=== PATIENT | male | born 1955 | race Caucasian/White ===

== ENCOUNTER 2018-02-16 05:40 | Day surgery (SDC) | payer OTHER, BC ==
[~2018-02-16] VITALS: Ht 193 cm; Wt 78.9 kg
[~2018-02-16 05:40] MED LIST: CO Q-10100 MG PO; GLUCOSAMINE1000 MG PO; LIPITOR20 MG PO
[2018-02-16] MEDS ORDERED: CLOTRIMAZOLE-BE15 GM TOP (06:16)
--- NOTE | 2018-02-16 09:20 | NUR ---
02/16/18 0920 Rosita Martínez 0909 PT ARRIVED TO PACU ON 6L VIA MASK, VP [employer] JAW TRUST AND PT REACTIVE TO PAINFUL STIMULI. RESP EVEN AND UNLABORED. 09 PT ABLE TO MAINTAIN OWN AIRWAY. PT REORIENTED TO PACU. 09 APNEA PERIOD NOTED. RN [id number] JAW TRUST AND PT WOKE AND TOOK A DEEP BREATH. 0918 O2 MASK REMOVED, PT REACHING UP AND RUBBING FACE. RN CONTINUES TO REMIND PT TO DEEP BREATHE.
[2018-02-16] MEDS ORDERED: OXYCODON-ACETA1 EAC2 PO (09:30)
[2018-02-16] MEDS ORDERED: IBUPROFEN600 MG PO (09:30)
[2018-02-16] MEDS ORDERED: MAPAP325 MG PO (09:31)
--- NOTE | 2018-02-16 09:59 | NUR ---
[id number]: PT ARRIVES TO DS TREATMENT ROOM FROM PACU AWAKE AND ALERT. RESP EVEN AND UNLABORED. PT DENIES ANY PAIN OR NAUSEA. PT SPOUSE IN ROOM AT BEDSIDE. PT PROVIDED WATER AND CRACKERS. CALL LIGHT AT PT SIDE. 1000: PT PROVIDED COFFEE PER REQUEST.
--- NOTE | 2018-02-16 10:43 | NUR ---
PT TOLERATES PO WELL. PT CONT TO DENY PAIN OR NAUSEA. PT ENCOURAGED TO USE CALL LIGHT WHEN HE FEELS THE URGE TO VOID TO MEET DC CRITERIA TO GO HOME.
--- NOTE | 2018-02-16 10:49 | NUR ---
PT UP TO BR WITH RN ASSIST. PT AMBULATES WELL, STEADY ON FEET. PT DENIES DIZZINESS OR NAUSEA WITH POSITION CHANGE. PT UNABLE TO VOID AT THIS TIME AND STATES, "I JUST WANT TO GO HOME." PT BACK IN BED, DRINKING COFFEE. DC CRITERIA EXPLAINED.
--- NOTE | 2018-02-16 11:38 | NUR ---
1020: PT USES CALL LIGHT TO NOTIFY RN. ON ARRIVAL PT IS COMPLETELY DRESSED AND STATES HE WAS ABLE TO VOID. 100 MLS JACKI COLORED URINE NOTED IN URINAL. DC INSTRUCTIONS GIVEN IN PRESENCE OF PT AND SPOUSE. PT UNABLE TO MAKE FOLLOW UP APPT MADE BY RN, PT INSTRUCTED TO RESCHEDULE WITH DR. CALLE'S OFFICE. PT DC'S FROM DS TREATMENT RM VIA WC WITH VOLUNTEER TO HOME.
== END 2018-02-16 11:35 | disposition home or self-care (01) ==
LOC: DS 05:40
PROVIDERS: Surgery
PROC: 0YU60KZ Supplement Left Inguinal Region with Nonautologous Tissue Substitute, Open Approach (ICD-10-PCS; principal; 2018-02-16 06:45)
DX: K40.90 Unilateral inguinal hernia, without obstruction or gangrene, not specified as recurrent (principal); D17.6 Benign lipomatous neoplasm of spermatic cord; K42.9 Umbilical hernia without obstruction or gangrene; Z88.0 Allergy status to penicillin; Z85.828 Personal history of other malignant neoplasm of skin; Z79.899 Other long term (current) drug therapy
CPT/HCPCS: 00830; C1781; J0690; J1644; J1885; J2405; J2704; J3010; J7120

== ENCOUNTER 2018-02-23 05:50 | Day surgery (SDC) | payer BC ==
--- NOTE | 2018-02-16 11:24 | OR ---
[facility] [place] [facility] [address], [place] [address] Signed DATE OF OPERATION: 02/16/2018 SURGEON: Craig Calle MD PREOPERATIVE DIAGNOSIS: Left inguinal hernia (work-related). POSTOPERATIVE DIAGNOSIS: Left inguinal hernia, work-related both direct and indirect components. PROCEDURES: 1. Repair of left inguinal hernia with implantation of Prolene mesh, underlay technique and high ligation and excision of sac. 2. Excision of cord lipoma. ANESTHESIA: General LMA; Adolph Chávez CRNA and local 20 mL of 0.25% Marcaine with epinephrine. INDICATION: This 62-year-old white man is a patient of Dr. Joel Jorgensen, now in [place], [place] and has developed a left inguinal hernia, which is reducible. 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 He noted the pain in the left groin while getting in and out of his truck and developed a bulge in the area, which worsened over time and has been identified as a reducible left inguinal hernia. He additionally has an umbilical hernia, which is unrelated to work. It has been present for quite a long time and that is not being addressed at this time. He is admitted at this time to undergo repair of left inguinal hernia. He understands the risks of bleeding, infection, recurrence, and other unforeseen complications. We have discussed thoroughly his lifting limitations on the short term to allow for complete healing of the repair. He understands. FINDINGS: Patient has very thin body habitus, but very muscular. He had a small moderate-sized indirect sac without sign of incarcerated viscus and a direct hernia as well. Repair included ligation and excision of the indirect sac, excision of the cord lipoma as well as implantation of Prolene mesh in an underlay technique in the floor of the inguinal canal. Electronically Signed By: CRAIG CALLE MD 02/16/18 1124 PATIENT NAME: CRAIG YBARRA OPERATIVE REPORT DATE OF : 55 REPORT #: [id number] PHYSICIAN: CRAIG CALLE MD PCP: JOEL JORGENSEN DO REPORT IS CONFIDENTIAL AND NOT TO BE RELEASED WITHOUT AUTHORIZATION [facility] [place] [facility] [address], [place] [address] Signed DESCRIPTION OF PROCEDURE: The patient was brought to the operating room, given a general anesthetic by LMA technique. Preoperative antibiotic Ancef was given. Heparin was administered subcutaneously and sequential compression device stockings are used. The lower groin area was clipped and prepared with a chlorhexidine solution and draped sterilely. A very small incision cephalad to the pubic tubercle was made along the line of skin tension. Dissection carried through the very thin subcutaneous tissue. An inferior epigastric vein was ligated and divided. The external oblique was exposed. There was attenuation of the fibers of the external oblique and those thin fibers were incised and the external oblique elevated medially and laterally. An ilioinguinal nerve branch was dissected free from the cremasteric muscle fibers of the cord and reflected around the external oblique medially and protected from harm. The cord was carefully mobilized from the floor and encircled with a Miguel drain. The floor had attenuation consistent with direct hernia. Further dissection in the medial anterior aspect of the cord showed an indirect hernia sac, which was carefully dissected free from the cord completely. Once fully isolated, it was opened and inspected internally. The peritoneal reflection area performed in the neck of the sac was doubly secured with 2-0 silk suture under direct visualization, and redundant hernia sac amputated and passed for pathology. There was a small to moderate size lipoma of the cord, which was excised as well. The attenuated fibers of the fascia of transversalis in the inguinal floor were incised with electrocautery and using blunt dissection, the properitoneal fat was . A small blood vessels that were oozing in the iliopubic track were secured with electrocautery. Once hemostasis was assured, repair was undertaken with Prolene mesh. A segment of Prolene mesh was cut to an elliptical configuration and secured in the upper properitoneal space (underlay technique) with interrupted 2-0 Prolene sutures. A defect was cut in the graft to accommodate the cord structures and the tails of the graft were secured laterally around the cord taking care to avoid encumbrance of the ilioinguinal nerve. A 20 mL of 0.25% Marcaine with epinephrine was injected locally. The cord appeared to be unharmed and the ilioinguinal nerve replaced alongside it. The external oblique was reapproximated with a running 2-0 Vicryl suture. Trixie's layer was reapproximated with interrupted 2-0 Vicryl and skin closed with running subcuticular 3-0 Vicryl. Steri-Strips were applied as was a Mepilex silver sponge dressing and an OpSite. The patient tolerated the procedure well. Blood loss was minimal. Complications none. Electronically Signed By: CRAIG CALLE MD 02/16/18 1124 PATIENT NAME: CRAIG YBARRA OPERATIVE REPORT DATE OF : 55 REPORT #: [id number] PHYSICIAN: CRAIG CALLE MD PCP: JOEL JORGENSEN DO REPORT IS CONFIDENTIAL AND NOT TO BE RELEASED WITHOUT AUTHORIZATION [facility] [place] [facility] [address] [place], [place] [address] Signed MD JESSICA Webster/FELICITA /[id number] cc: Joel Jorgensen DO Copies: JOEL JORGENSEN DO ~ Electronically Signed By: CRAIG CALLE MD 02/16/18 1124 PATIENT NAME: CRAIG YBARRA OPERATIVE REPORT DATE OF : 55 REPORT #: [id number] PHYSICIAN: CRAIG CALLE MD PCP: JOEL JORGENSEN DO REPORT IS CONFIDENTIAL AND NOT TO BE RELEASED WITHOUT AUTHORIZATION
[~2018-02-23] VITALS: Ht 193 cm; Wt 78.9 kg
[~2018-02-23 05:50] MED LIST changes: +CLOTRIMAZOLE-BE15 GM TOP; +IBUPROFEN600 MG PO; +MAPAP325 MG PO; +OXYCODON-ACETA1 EAC2 PO
--- NOTE | 2018-02-23 08:05 | NUR ---
PT IS ALERT, ORIENTED AND SUPPORTED BY HIS . PT HAS RETURNED FOR A SECOND HERNIA SURGERY IN JUST OVER A WEEK. PT IS INFORMED, SEEMED COMFORTABLE. THEY BOTH THANKED ME FOR COMING, EXTENDED A BLESSING. WILL FOLLOW NEEDED
--- NOTE | 2018-02-23 08:32 | NUR ---
02/23/18 0832 Olena Burkett 0851-PATIENT ARRIVED TO PACU ON 6L MASK RR EVEN. PATIENT REACTIVE TO VOICE OPENS EYES DENIES PAIN OR NAUSEA. DRESSING TO UMBILICUS CDI. SR.
[2018-02-23] MEDS ORDERED: OXYCODON-ACETA1 EAC2 PO (08:47)
[2018-02-23] MEDS ORDERED: IBUPROFEN600 MG PO (08:48)
--- NOTE | 2018-02-23 09:51 | NUR ---
0910 PT ARRIVED FROM PACU, AWAKE AND TALKING WITH STAFF. PT DENIES PAIN AND NAUSEA. VITALS STABLE. WATER AND COFFEE GIVEN PER REQUEST. DISCHARGE CRITERIA DISCUSSED. NO FURTHER NEEDS AT THIS TIME. AT BEDSIDE, CALL LIGHT IN REACH.
--- NOTE | 2018-02-23 09:53 | NUR ---
IN TO CHECK ON PT, PT AWAKE. TOLERATING PO WELL. DENIES PAIN AND NAUSEA. PT WOULD LIKE TO DC SOON, CRITERIA DISCUSSED. WATER REFILLD. NO FURTHER NEEDS AT THIS TIME. AT BEDSIDE. CALL LIGHT IN REACH.
--- NOTE | 2018-02-23 15:16 | OR ---
[facility] [address] [place], [place] [address] Signed DATE OF OPERATION: 02/23/2018 SURGEON: Craig Calle MD PREOPERATIVE DIAGNOSIS: Supraumbilical hernia. POSTOPERATIVE DIAGNOSES: 1. Supraumbilical hernia, nonreducible properitoneal fat. 2. Incidentally noted umbilical hernia (small). PROCEDURES: 1. Repair of supraumbilical hernia and umbilical hernia. 2. Implantation of Prolene mesh underlay technique. ANESTHESIA: General and LMA; Craig Be CRNA, and local 20 mL of 0.25% Marcaine with epinephrine. INDICATION: This 62-year-old white man is a patient Dr. Joel Jorgensen in [place], [place]. He does a fair amount of weightlifting and works for [employer] in [employer]. He recently underwent left inguinal hernia repair by me, which was considered work related. He was recovering from that well. He has had longstanding hernia at the umbilical area in the umbilical or supraumbilical, and is now admitted to undergo repair for that. Notably, that hernia is not work related or at least not considered work related by the patient. He is admitted at this time to undergo repair of the supraumbilical hernia, understand the risks of bleeding, infection, recurrence, and other unforeseen complications. He understands this and wished to proceed. FINDINGS: Supraumbilical defect was about 1.5 cm in size and had herniated properitoneal fat, which was incarcerated. There was no hollow viscus incarceration. Additional evaluation showed him to have an umbilical defect as well, which was much smaller about 0.5 cm in size. Both defects were repaired with implantation of Prolene mesh in an underlay technique and with reapproximation of the fascia transversely. DESCRIPTION OF PROCEDURE: The patient was brought to the operating room, given a general anesthetic by LMA technique. Preoperative antibiotic clindamycin was given. The abdomen was clipped and prepared with a chlorhexidine solution and draped sterilely. Evaluation of his left Electronically Signed By: CRAIG CALLE MD 02/23/18 1516 PATIENT NAME: CRAIG YBARRA OPERATIVE REPORT DATE OF : 55 REPORT #: [id number] PHYSICIAN: CRAIG CALLE MD PCP: JOEL JORGENSEN DO REPORT IS CONFIDENTIAL AND NOT TO BE RELEASED WITHOUT AUTHORIZATION [facility] [address] [place], [place] [address] Signed inguinal hernia wound site showed it to be healing well. The palpable mass in the supraumbilical area was noted and an incision was made vertically cephalad to the umbilicus proper. Dissection was carried through the dermis and subcutaneous tissue sharply revealing a herniated segment of properitoneal fat. This was not reducible. The blunt dissection was more fully dissected free and photographs were taken of it. The defect was approximately 1.5 cm in final analysis. The herniated fat was freed from the fascial confines and reduced to the properitoneal space. A blunt dissection undertaken in the properitoneal space circumferentially. Subcutaneous tissue was freed circumferentially as well and extended inferiorly to the umbilicus proper. There was found to be a defect at the umbilicus proper, it is about 0.5 cm in size. The properitoneal dissection in this area showed there to be no sign of herniated viscus. It was deemed most advisable to repair both of the hernia defects in continuity with implantation of Prolene mesh in an underlay technique in the properitoneal space. A segment of mesh was cut to the appropriate configuration and secured in a parachute type technique to the properitoneal space covering both defects fully. The fascia was then reapproximated with interrupted 2-0 Prolene suture as well in a transverse configuration. Both defects were thus completely closed. A 20 mL of 0.25% Marcaine with epinephrine was injected locally. Trixie's layer was reapproximated with interrupted 3-0 Vicryl and skin closed with running subcuticular 3-0 Vicryl. Steri-Strips were applied as was a Mepilex silver sponge dressing and an OpSite. The patient was ultimately extubated and transferred to recovery room in good condition having suffered no complications. Sponge, needle, and instruments counts were reported as correct x3. MD JESSICA Webster/EARLL /[id number] cc: Joel Jorgensen DO Copies: JOEL JORGENSEN DO Electronically Signed By: CRAIG CALLE MD 02/23/18 1516 PATIENT NAME: CRAIG YBARRA OPERATIVE REPORT DATE OF : 55 REPORT #: [id number] PHYSICIAN: CRAIG CALLE MD PCP: JOEL JORGENSEN DO REPORT IS CONFIDENTIAL AND NOT TO BE RELEASED WITHOUT AUTHORIZATION [address] [address] Signed ~ Electronically Signed By: CRAIG CALLE MD 02/23/18 1516 PATIENT NAME: CRAIG YBARRA OPERATIVE REPORT DATE OF : 55 REPORT #: [id number] PHYSICIAN: CRAIG CALLE MD PCP: JOEL JORGENSEN DO REPORT IS CONFIDENTIAL AND NOT TO BE RELEASED WITHOUT AUTHORIZATION
== END 2018-02-23 10:10 | disposition home or self-care (01) ==
LOC: DS 05:50
PROVIDERS: Surgery
PROC: 0WUF0JZ Supplement Abdominal Wall with Synthetic Substitute, Open Approach (ICD-10-PCS; principal; 2018-02-23 06:45)
DX: K42.0 Umbilical hernia with obstruction, without gangrene (principal); K40.90 Unilateral inguinal hernia, without obstruction or gangrene, not specified as recurrent; E78.00 Pure hypercholesterolemia, unspecified; M19.90 Unspecified osteoarthritis, unspecified site; I83.90 Asymptomatic varicose veins of unspecified lower extremity; Z88.0 Allergy status to penicillin; Z85.828 Personal history of other malignant neoplasm of skin; Z79.899 Other long term (current) drug therapy
CPT/HCPCS: 00750; C1781; J1100; J1644; J1885; J2250; J2405; J2704; J2765; J3010; J7120